=== PATIENT | female | born 2000 | race Two or more races ===

== ENCOUNTER 2022-07-24 08:27 | Inpatient (IN) ==
[2022-07-24] MEDS ORDERED: ONDANSETRON INJ 2 MG/ML 2 ML VIAL IV STA (08:53)
[2022-07-24] MEDS ORDERED: SODIUM CHLORIDE 0.9% 1000ML 1,000 ML IV ONE (08:53)
[2022-07-24 09:35] LABS: Appearance Urine Clear (Clear); Bacteria Urine Automated 2+ (Negative); Basophils % (auto) 0.5 %; Bilirubin Urine Negative (Negative); Blood Urine 1+ (Negative); Color Urine Yellow; Eosinophils # (auto) 0.09 K/uL (0-0.50); Eosinophils % (auto) 0.5 %; Epithelial Cell Urine Auto >30 /lpf (0-5); Glucose Urine UA Negative (Negative); Hematocrit (blood only) 45.3 % (37.0-47.0); Hemoglobin 15.3 g/dl (12.0-16.0); Immature Granulocytes # (auto) 0.08 K/uL (0.01-0.20); Immature Granulocytes % (auto) 0.4 %; Ketones Urine Negative (Negative); Leukocyte Esterase Urine Negative (Negative); Lymphocytes # (auto) 3.61 K/uL (1.2-3.4); Lymphocytes % (auto) 19.4 %; Mean Corpuscular Hemoglobin 28.8 pg (25.0-34.0); Mean Corpuscular Hgb Conc 33.8 g/dL (32.0-36.0); Mean Corpuscular Volume 85.2 fL (80.0-100.0); Mean Platelet Volume 10.3 fL (9.4-12.4); Monocytes # (auto) 1.27 K/uL (0.11-0.59); Monocytes % (auto) 6.8 %; Neutrophils # (auto) 13.48 K/uL (1.40-6.50); Neutrophils % (auto) 72.4 %; Nitrite Urine Negative (Negative); Platelet Count 506 K/uL (130-400); Protein Urine Negative (Negative); RBC Urine Automated 0-4 /hpf (0-4); RDW Coefficient of Variation 12.3 % (11.5-14.5); RDW Standard Deviation 37.9 fL (36.4-46.3); Red Blood Count 5.32 M/uL (4.20-5.40); Specific Gravity Urine 1.023 (1.000-1.030); Urobilinogen Urine Negative (Negative); White Blood Count 18.63 K/ul (4.8-10.8); pH Urine 5.5 (4.5-7.5)
[2022-07-24 09:48] LABS: Albumin Level 4.8 gm/dl (3.4-5.0); BUN Creatinine Ratio 9.9 (10-20); Bilirubin Direct 0.1 mg/dl (0-0.2); Bilirubin,Total 0.7 mg/dl (0.2-1.0); Calcium 9.4 mg/dl (8.6-10.3); Creatinine Clr Calc Pharmacy 133.8 ml/min; Est GFR (African American) 141.1 ml/min; Est GFR (Non-African American) 121.8 ml/min; Potassium 3.7 mmol/L (3.5-5.1); Total Protein 8.1 gm/dl (6.0-8.3)
[2022-07-24] MEDS ORDERED: OPTIRAY 350 100ml IV ONE (10:12)
--- NOTE | 2022-07-24 10:54 | CT Scan Report ---
CT SCAN OF THE ABDOMEN AND PELVIS WITH IV CONTRAST CLINICAL HISTORY: Right lower quadrant abdominal pain. COMPARISON STUDY: No priors. TECHNIQUE: Following the IV administration of 90 cc of Optiray 350, CT scan of the abdomen and pelvi s is performed from the lung bases to the proximal femora. Images are reviewed in the axial, sagittal , and coronal planes. IV contrast was administered without complication. A dose lowering technique wa s utilized adhering to the principles of ALARA. CT DOSE: 592.54 mGy.cm FINDINGS: Lung bases: The heart is normal in size and without pericardial effusion. The lung bases are clear. Liver: The contrast-enhanced liver is enlarged, measuring 18.7 cm in length. The liver demonstrates d iffusely demonstrate attenuation indicating steatosis. Fatty sparing is noted adjacent to the gallbla dder fossa. A 1.6 cm hyperdense lesion is seen in the right lobe on image #150. There is no intrahepa tic biliary ductal dilatation. The hepatic veins and portal veins are patent. Gallbladder: Unremarkable. Spleen: Normal in size and attenuation. Pancreas: Unremarkable. Adrenal glands: Unremarkable. Kidneys: The contrast enhanced kidneys are normal in size and without hydronephrosis. The kidneys enh ance symmetrically. Abdominal vasculature: The abdominal aorta is normal in course and caliber. Bowel: No bowel obstruction is seen. Residual enteric contrast is noted in the colon. The appendix is dilated and fluid-filled, measuring up to 2.1 cm in diameter as seen on axial image #306. The append iceal wall is thickened and hyperemic and there is surrounding inflammation and fluid. A calcified ap pendicolith is suggested at the base of the appendix on image #295. There is focal discontinuity of t he appendiceal wall posteriorly near the base. Developing perforation is not excluded. No organized f luid collection is seen to suggest abscess. Peritoneum: There is no intraperitoneal free air or abdominal ascites. Lymphadenopathy: None. Pelvic viscera: The bladder is normal as visualized. The uterus is normal in appearance noting an int rauterine device in place. There are bilateral ovarian follicles. A small volume of free fluid is see n in the cul-de-sac. Skeletal structures: No lytic or blastic lesions are seen. IMPRESSION: 1. Acute appendicitis. 2. Focal perforation at the base of the appendix is suspected. There is no organized fluid collection to suggest abscess. 3. Hepatomegaly and hepatic steatosis. 4. Free fluid in the cul-de-sac is nonspecific and could be reactive or physiologic. 5. There is a 1.6 cm hyperdense right lobe liver lesion. This likely represents a hemangioma or focal nodular hyperplasia but cannot be definitively characterized on this examination. If definitive deepak acterization is desired an MRI of the liver would be required. 6. Additional findings as above. ACT 112: Negative or not required by law. Electronically signed by: Sincere Gomez M.D. 07/24/2022 10:52 AM
[2022-07-24] MEDS ORDERED: PIPERACILLIN/TAZOBACTAM 4.5 GM/120 ML BAG IV ONE (10:58)
[2022-07-24] MEDS ORDERED: MoRPHine SULFATE 4 MG/ML 1 ML CARP\\VIAL IV STA (11:21)
--- NOTE | 2022-07-24 12:02 | History & Physical Report ---
Date of Service July 24, 2022 Assessment & Plan (1) Acute appendicitis with localized peritonitis: Plan: 22-year-old female with moderate to severe acute appendicitis with possible microperforation. Would recommend laparoscopic appendectomy. She will likely need to be admitted postoperatively and stay in the hospital till she is afebrile and her WBC normalizes. Plan for laparoscopic appendectomy, possible open The risk the procedure were discussed to include but not limited to bleeding, infection, conversion to open, normal appendix, need for future more extensive surgery, damage to surrounding structures, abscess, and the risk of anesthesia Admit to Med[facility] postop If evidence of perforation, would recommend IV antibiotics till WBC normalizes and afebrile History of Present Illness Chief Complaint: Abdominal pain Primary Care Provider: Gray Camacho 22-year-old female presents with abdominal pain. Started with periumbilical pain about 48 hours ago. Yesterday evening the pain migrated to the right lower quadrant and became worse. She admits to some nausea, and had some diarrhea early in the process. Otherwise no other fevers or abdominal symptoms. Otherwise healthy, no prior abdominal surgeries, no routine medications. Student at [employer]. Allergies Allergy/AdvReac Type Severity Reaction Status Date / Time No Known Allergies Allergy Unverified 07/24/22 09:39 Home Medications Medication Instructions Recorded Confirmed Type No Known Home Medications 07/24/22 07/24/22 History Past Med/Surg History Medical History (Updated 07/24/22 @ 12:01 by Aramis Corey DO, FACS) Acute appendicitis with localized peritonitis Social History Smoking Status: Never smoker Feels Safe at Home: Yes Review of Systems Review of Systems: All systems reviewed & are unremarkable except as noted in HPI & below Physical Exam Constitutional: WD/WN, vitals as above + obese Respiratory: normal respiratory effort, lungs clear to auscultation Cardiovascular: RRR, no murmur, no edema Gastrointestinal (Abdomen): Percussion/Palpation: + abdomen tender (Tender to palpation in right lower quadrant with localized guarding), + guarding and a bdomen soft; abdomen not rigid and no hernia Results & Data Results & Data Vital Signs (Past 12 Hours) Vital Signs Temp Pulse Resp BP Pulse Ox O2 Del Method 07/24/22 11:30 122/81 98 07/24/22 11:00 106/70 95 07/24/22 10:50 18 113/71 95 07/24/22 10:31 113/71 96 07/24/22 09:28 74 20 112/72 97 07/24/22 09:00 67 16 97 Room Air 07/24/22 09:35 78 07/24/22 08:38 36.6 C 94 H 20 112/78 97 Room Air Laboratory Results Laboratory Results - last 24 hr 07/24/22 07/24/22 07/24/22 09:05 09:05 09:05 WBC 18.63 H RBC 5.32 Hgb 15.3 Hct 45.3 MCV 85.2 MCH 28.8 MCHC 33.8 RDW Std Deviation 37.9 RDW Coeff of Marlene 12.3 Plt Count 506 H MPV 10.3 Immature Gran % (Auto) 0.4 Neut % (Auto) 72.4 Lymph % (Auto) 19.4 [place] % (Auto) 6.8 Eos % (Auto) 0.5 Baso % (Auto) 0.5 Neut # (Auto) 13.48 H Lymph # (Auto) 3.61 H [place] # (Auto) 1.27 H Eos # (Auto) 0.09 Baso # (Auto) 0.10 Immature Gran # (Auto) 0.08 Sodium 138 Potassium 3.7 Chloride 102 Carbon Dioxide 26 Anion Gap 10 BUN 7 Creatinine 0.71 Est Cr Clr Drug Dosing 133.8 Est GFR ( Amer) 141.1 Est GFR (Non-Af Amer) 121.8 BUN/Creatinine Ratio 9.9 L Glucose 103 H Calcium 9.4 Total Bilirubin 0.7 Direct Bilirubin 0.1 AST 38 ALT 111 H Alkaline Phosphatase 74 Total Protein 8.1 Albumin 4.8 Lipase 15 HCG, Quant < 1 Urine Color Urine Appearance Urine pH Ur Specific [place] Urine Protein Urine Glucose (UA) Urine Ketones Urine Blood Urine Nitrite Urine Bilirubin Urine Urobilinogen Ur Leukocyte Esterase Urine WBC (Auto) Urine RBC (Auto) U Hyaline Cast (Auto) U Epithel Cells (Auto) Urine Bacteria (Auto) POC Ur Test SARS-CoV-2, RNA, NAAT 07/24/22 07/24/22 07/24/22 09:05 09:05 Unknown WBC RBC Hgb Hct MCV MCH MCHC RDW Std Deviation RDW Coeff of [place] Plt Count MPV Immature Gran % (Auto) Neut % (Auto) Lymph % (Auto) [place] % (Auto) Eos % (Auto) Baso % (Auto) Neut # (Auto) Lymph # (Auto) [place] # (Auto) Eos # (Auto) Baso # (Auto) Immature Gran # (Auto) Sodium Potassium Chloride Carbon Dioxide Anion Gap BUN Creatinine Est Cr Clr Drug Dosing Est GFR ( Amer) Est GFR (Non-Af Amer) BUN/Creatinine Ratio Glucose Calcium Total Bilirubin Direct Bilirubin AST ALT Alkaline Phosphatase Total Protein Albumin Lipase HCG, Quant Urine Color Yellow Urine Appearance Clear Urine pH 5.5 Ur Specific [place] 1.023 Urine Protein Negative Urine Glucose (UA) Negative Urine Ketones Negative Urine Blood 1+ H Urine Nitrite Negative Urine Bilirubin Negative Urine Urobilinogen Negative Ur Leukocyte Esterase Negative Urine WBC (Auto) 1-5 Urine RBC (Auto) 0-4 U Hyaline Cast (Auto) 1-5 U Epithel Cells (Auto) >30 H Urine Bacteria (Auto) 2+ H POC Ur Test NEG SARS-CoV-2, RNA, NAAT Pending Diagnostic Findings I personally reviewed and interpreted the CT scan and agree with the assessment of an acute appendicitis with possible focal perforation, no evidence of well- developed abscess or free air. CT SCAN OF THE ABDOMEN AND PELVIS WITH IV CONTRAST CLINICAL HISTORY: Right lower quadrant abdominal pain. COMPARISON STUDY: No priors. TECHNIQUE: Following the IV administration of 90 cc of Optiray 350, CT scan of the abdomen and pelvis is performed from the lung bases to the proximal femora. Images are reviewed in the axial, sagittal, and coronal planes. IV contrast was administered without complication. A dose lowering technique was utilized adhering to the principles of ALARA. CT DOSE: 592.54 mGy.cm FINDINGS: Lung bases: The heart is normal in size and without pericardial effusion. The lung bases are clear. Liver: The contrast-enhanced liver is enlarged, measuring 18.7 cm in length. The liver demonstrates diffusely demonstrate attenuation indicating steatosis. Fatty sparing is noted adjacent to the gallbladder fossa. A 1.6 cm hyperdense lesion is seen in the right lobe on image #150. There is no intrahepatic biliary ductal dilatation. The hepatic veins and portal veins are patent. Gallbladder: Unremarkable. Spleen: Normal in size and attenuation. Pancreas: Unremarkable. Adrenal glands: Unremarkable. Kidneys: The contrast enhanced kidneys are normal in size and without hydronephrosis. The kidneys enhance symmetrically. Abdominal vasculature: The abdominal aorta is normal in course and caliber. Bowel: No bowel obstruction is seen. Residual enteric contrast is noted in the colon. The appendix is dilated and fluid-filled, measuring up to 2.1 cm in diameter as seen on axial image #306. The appendiceal wall is thickened and hyperemic and there is surrounding inflammation and fluid. A calcified appendicolith is suggested at the base of the appendix on image #295. There is focal discontinuity of the appendiceal wall posteriorly near the base. Developin g perforation is not excluded. No organized fluid collection is seen to suggest abscess. Peritoneum: There is no intraperitoneal free air or abdominal ascites. Lymphadenopathy: None. Pelvic viscera: The bladder is normal as visualized. The uterus is normal in appearance noting an intrauterine device in place. There are bilateral ovarian follicles. A small volume of free fluid is seen in the cul-de-sac. Skeletal structures: No lytic or blastic lesions are seen. IMPRESSION: 1. Acute appendicitis. 2. Focal perforation at the base of the appendix is suspected. There is no organized fluid collection to suggest abscess. 3. Hepatomegaly and hepatic steatosis. 4. Free fluid in the cul-de-sac is nonspecific and could be reactive or physiologic. 5. There is a 1.6 cm hyperdense right lobe liver lesion. This likely represents a hemangioma or focal nodular hyperplasia but cannot be definitively characterized on this examination. If definitive characterization is desired an MRI of the liver would be required. 6. Additional findings as above. PG Care Time/CCT Total # of Minutes Spent Total Time Spent with Patient: Total time spent is greater than 50% in coordination of care (as documented) at patient's floor/unit and/or counseling patient: Coding Level of Care Code 42368 INT INP/OBS CARE 40MIN Diagnoses Acute appendicitis with localized peritonitis K35.30
[2022-07-24] MEDS ORDERED: BUPIVACAINE 0.5 % 5 MG/1 ML MPF 30ML VIAL ONE (12:05)
[2022-07-24] MEDS ORDERED: LIDOCAINE 2% MPF LOCAL 5 ML VIAL ONE (12:16)
[2022-07-24] MEDS ORDERED: ONDANSETRON INJ 2 MG/ML 2 ML VIAL ONE (12:16)
[2022-07-24] MEDS ORDERED: DEXAMETHASONE SOD INJ 4 MG/ML VIAL ONE (12:16)
[2022-07-24] MEDS ORDERED: PROPOFOL IV EMULSION 10 MG/ML 20 ML VIAL IV ONE (12:16)
[2022-07-24] MEDS ORDERED: ROCURONIUM BROMIDE 10 MG/ML 5 ML VIAL IV ONE (12:16)
[2022-07-24] MEDS ORDERED: MIDAZOLAM HCL 1 MG/ML 2ML VIAL ONE (12:17)
[2022-07-24] MEDS ORDERED: fentaNYL citrate PF 100 MCG/2 ML VIAL ONE ×2 (12:17→13:00)
[2022-07-24] MEDS ORDERED: ATROPINE SULFATE 0.1 MG/ML 10ML SYR IV PRN (12:25)
[2022-07-24] MEDS ORDERED: fentaNYL citrate PF 100 MCG/2 ML VIAL IV PRN (12:25)
[2022-07-24] MEDS ORDERED: ONDANSETRON INJ 2 MG/ML 2 ML VIAL IV PRN ×2 (12:25→15:02)
[2022-07-24] MEDS ORDERED: ePHEDrine sulfate 50 MG/ML AMP IV PRN (12:25)
--- NOTE | 2022-07-24 12:26 | Anesthesiology Consultation ---
Date of Service July 24, 2022 Assessment & Plan Chart Review Chart Review: medical charge entry specialist initiated History Surgery Operation Date: 07/24/22 13:00 Proposed Procedures p Laparoscopic Appendectomy - Aramis Corey DO, FACS Height/Weight Height: 5 ft 4 in Weight: 87 kg Allergies Allergy/AdvReac Type Severity Reaction Status Date / Time No Known Allergies Allergy Unverified 07/24/22 09:39 Medications Home Medications Medication Instructions Recorded Confirmed Last Taken No Known Home Medications 07/24/22 07/24/22 Unknown Past Medical History Medical History Acute appendicitis with localized peritonitis Social History Smoking Status: Never smoker Physical Exam Vital Signs Last Vital Signs Temp 97.9 F 07/24/22 08:38 Pulse 70 07/24/22 12:20 Resp 18 07/24/22 12:20 BP 113/71 07/24/22 12:20 Pulse Ox 96 07/24/22 12:20 O2 Del Method Room Air 07/24/22 12:20 Testing Laboratory Results 07/24/22 09:05 07/24/22 09:05 HCG, Quant < 1 mIU/ml 07/24/22 09:05 Urine Color Yellow 07/24/22 09:05 Urine Appearance Clear (Clear) 07/24/22 09:05 Urine pH 5.5 (4.5-7.5) 07/24/22 09:05 Ur Specific [place] 1.023 (1.000-1.030) 07/24/22 09:05 Urine Protein Negative (Negative) 07/24/22 09:05 Urine Glucose (UA) Negative (Negative) 07/24/22 09:05 Urine Ketones Negative (Negative) 07/24/22 09:05 Urine Nitrite Negative (Negative) 07/24/22 09:05 Ur Leukocyte Esterase Negative (Negative) 07/24/22 09:05 Urine WBC (Auto) 1-5 /hpf (0-5) 07/24/22 09:05 Urine RBC (Auto) 0-4 /hpf (0-4) 07/24/22 09:05 U Hyaline Cast (Auto) 1-5 /lpf (0-5) 07/24/22 09:05 U Epithel Cells (Auto) >30 /lpf (0-5) H 07/24/22 09:05 Urine Bacteria (Auto) 2+ (Negative) H 07/24/22 09:05 07/24/22 07/24/22 09:05 09:05 HCG, Quant < 1 POC Ur Test NEG
[2022-07-24] MEDS ORDERED: SUGAMMADEX SODIUM 200 MG/2 ML VIAL IV ONE (13:24)
[2022-07-24] MEDS ORDERED: KETOROLAC 30 MG/ML VIAL ONE (13:25)
--- NOTE | 2022-07-24 13:44 | Operative Report ---
PG Post Operative Report Pre & Post Diagnosis Operation Date: 07/24/22 13:00 Pre-Op Diagnosis: Lower abdominal pain; Acute appendicitis with localized peritonitis Post-Op Diagnosis: Acute appendicitis with localized peritonitis, perforated I identified the patient and participated in the time-out.: Yes Procedure Operation Date: 07/24/22 13:00 Actual Procedures p Laparoscopic Appendectomy(Not Applicable) - Aramis Corey DO, AGUSTIN Surgeon Aramis Corey DO, AGUSTIN Dyeing Machine Back Tender None Estimated Blood Loss 5 Findings Consistent with Post-Op Diagnosis Acute appendicitis with contained perforation and necrotic base. Partial cectomy performed. Good hemostasis, MARY placed. Specimens Appendix Drains 10 mm MARY in right lower quadrant Anesthesia Type General Complications none Disposition Accompanied Patient To Recovery: No Disposition: Recovery Room Indications 22-year-old female presented with abdominal pain, physical exam and history consistent with appendicitis. CT shows acute appendicitis with perforation at the base, no free air, abscess, or phlegmon. Plan for laparoscopic appendectomy, possible open. The risks of the procedure were discussed, all questions were answered, and the patient agreed to proceed with surgery as planned. Description of Procedure The patient was properly identified, consented, and taken to the operating room where she was placed in the supine position. General endotracheal anesthesia was induced. SCDs and a safety belt were placed. Preoperative antibiotics were administered. A Peterson catheter was placed. The patient's abdomen was prepped and draped in the standard sterile fashion. Surgical timeout was performed and all parties were in agreement that this was the correct patient and procedure to be performed and we continued as planned. A curvilinear infraumbilical incision was made with electrocautery and deepened down to the fascia with blunt dissection. The base of the umbilicus was grasped with a Jane and elevated towards the ceiling. An incision was made in the midline fascia with a knife and entry into the peritoneum was confirmed. Stay suture of 0 Vicryl was placed and a Phillip trocar was inserted. The abdomen was insufflated with carbon dioxide which the patient tolerated without incident. The laparoscope was inserted and no damage from initial trocar placement was noted, no gross abnormalities were noted within the 4 quadrants the abdomen. 5 mm ports were then placed in the left lower quadrant with care not to damage the epigastric vessels, and in the suprapubic midline with care not to damage the bladder. The patient was placed in Trendelenburg position and rotated towards the left. The small bowel was swept away from the right lower quadrant. The cecum was grasped with an atraumatic grasper exposing the appendix. The appendix was moderately to severely inflamed. On the lateral portion of the base of the appendix there was a gangrenous patch with a contained perforation. There did not appear any spillage of pus or stool. There was turbid fluid in the pelvis. A window was created between the base of the appendix and the mesoappendix. A dao loaded endoscopic stapler was then used to divide the appendix at its base. A portion of the cecum was stapled along with this to allow for healthy base away from the perforation. The Sonicision was then used to divide the mesoappendix. Hemostasis was good. The appendix was placed in an Endo Catch bag and removed through the umbilical port site. The right lower quadrant and pelvis was irrigated and hemostasis was found to be good. A 10 mm MARY drain was placed into the right lower quadrant and exited through the left lower quadrant incision. This was secured in place with a 2-0 nylon suture. 5 mm trochars were removed under direct visualization and the abdomen was allowed to collapse. The umbilical port site fascia was closed with 0 Vicryl suture. The wound was irrigated, and the skin of all ports was closed with 4-0 Monocryl subcuticular sutures. Dermabond was placed over the wounds. The patient was extubated in the operating room and taken to the PACU where she recovered without apparent incident. The Peterson catheter was removed in the operating room. All sponge, instrument and needle counts were correct at the conclusion of the procedure. The patient tolerated the procedure well. I attest to the content of the Intraoperative Record and any orders documented therein. Any exceptions are noted below.
[2022-07-24] MEDS ORDERED: ACETAMINOPHEN 1,000 MG/100 ML VIAL IV STA (14:34)
[2022-07-24] MEDS ORDERED: ACETAMINOPHEN 1000 MG/100 ML IV IV ONE (14:36)
[2022-07-24] MEDS ORDERED: MoRPHine SULFATE 4 MG/ML 1 ML CARP\\VIAL IV PRN (15:02)
[2022-07-24] MEDS ORDERED: oxyCODONE HCL IR 5 MG TAB (IMMEDIATE RELEASE) PO PRN (15:02)
[2022-07-24] MEDS ORDERED: MoRPHine SULFATE 2 MG/ML CARP IV PRN (15:02)
--- NOTE | 2022-07-24 15:17 | Anesthesiology Progress Note ---
Date of Service July 24, 2022 Anesthesia Post Procedure Vital Signs Vital Signs: Temp Pulse Pulse Pulse Resp BP BP 07/24/22 15:02 100.2 F H 114 H 16 104/68 07/24/22 14:50 100.8 F H 104 H 20 111/67 07/24/22 14:40 111 H 21 102/59 L 07/24/22 14:30 100.8 F H 116 H 22 109/63 07/24/22 14:20 108 H 22 114/60 07/24/22 14:10 110 H 22 115/60 07/24/22 14:00 107 H 24 112/68 07/24/22 13:50 97.0 F L 121 H 20 114/68 07/24/22 12:00 121/76 07/24/22 12:20 70 18 113/71 07/24/22 11:30 122/81 07/24/22 11:00 106/70 07/24/22 10:50 18 113/71 07/24/22 10:31 113/71 07/24/22 09:28 74 20 112/72 07/24/22 09:00 67 16 07/24/22 09:35 78 07/24/22 08:38 97.9 F 94 H 20 112/78 Pulse Ox O2 Del Method O2 Flow Rate 07/24/22 15:02 97 Nasal Cannula 2 07/24/22 14:50 98 Nasal Cannula 2 07/24/22 14:40 95 Nasal Cannula 2 07/24/22 14:30 91 Room Air 07/24/22 14:20 99 Oxymask 3 07/24/22 14:10 100 Oxymask 3 07/24/22 14:00 100 Oxymask 4 07/24/22 13:50 94 Oxymask 6 07/24/22 12:00 96 07/24/22 12:20 96 Room Air 07/24/22 11:30 98 07/24/22 11:00 95 07/24/22 10:50 95 07/24/22 10:31 96 07/24/22 09:28 97 07/24/22 09:00 97 Room Air 07/24/22 09:35 07/24/22 08:38 97 Room Air Pain Intensity Right Lower Abdomen: Pain Intensity: 8 Transfer of Care Handoff Completed per policy Notes Mental Status: alert / awake / arousable and participated in evaluation Patient Amnestic to Procedure: Yes Nausea / Vomiting: adequately controlled Pain: adequately controlled Airway Patency, RR, SpO2: stable & adequate BP & HR: stable & adequate Hydration State: stable & adequate Anesthetic Complications: no major complications apparent and Pt Satisfied with anesthetic care
[2022-07-24] MEDS: LACTATED RINGER'S 1,000 ML IV SCH (15:40)
--- NOTE | 2022-07-24 16:08 | Emergency Department Note ---
History of Present Illness General Chief Complaint: Abdominal Pain Stated Complaint: LOWER ABD PAIN Time Seen by Provider: 07/24/22 08:44 History of Present Illness Provider Complaint: abdominal pain Onset (ago): 2 day(s) Pain Consistency: constant Location: RLQ Severity: moderate Maximum Pain Intensity: 8 Current Pain Intensity: 9 Quality: + stabbing and + sharp Relieved By: + nothing Exacerbated By: + nothing Context: no foreign travel, no possible food poisoning, no sick contacts, no recent antibiotic use, no recent surgery/procedure, no recent injury or no history of similar episodes Associated Symptoms: + nausea; no vomiting, no diarrhea, no fever, no chills, no constipation, no hematemesis, no hematochezia, no melena and no back pain Patient is currently on her menstrual cycle Related Data Patient Confirmed : Yes Home Medications Medication Instructions Recorded Confirmed Type No Known Home Medications 07/24/22 07/24/22 History Allergies Allergy/AdvReac Type Severity Reaction Status Date / Time No Known Allergies Allergy Unverified 07/24/22 09:39 Past Med/Surg History Medical History No pertinent family history No pertinent past medical history Surgical History No pertinent past surgical history Social History Smoking Status: Never smoker Feels Safe at Home: Yes Physical Exam Vital Signs: Vital Signs - 24 hr 07/24/22 08:38 07/24/22 09:35 07/24/22 09:00 Temperature 36.6 C Temperature Source Temporal Artery Sc an Pulse Rate 94 H 78 67 Pulse Rate [Apical ] Pulse Rate from Sp O2 Sensor Pulse Rhythm [Apic al] Pulse Strength [Ap ical] Respiratory Rate 20 16 Respiratory Effort / Characteristics Non-Labored Respiratory Depth Normal Respiratory Patter n Blood Pressure 112/78 Blood Pressure [Le ft Arm] Blood Pressure Venessa n 89 Blood Pressure Venessa n [Left Arm] Blood Pressure Pos ition [Left Arm] Pulse Oximetry 97 97 Oxygen Delivery Me thod Room Air Room Air Oxygen Flow Rate Sepsis Recent Feve r Within 48 Hours No Sepsis New/Unexpla ined Change in Men trupti Status N/A Sepsis Action Take n by Nursing No Action Required 07/24/22 09:28 07/24/22 10:31 07/24/22 10:50 Temperature Temperature Source Pulse Rate 74 Pulse Rate [Apical ] Pulse Rate from Sp O2 Sensor 73 76 68 Pulse Rhythm [Apic al] Pulse Strength [Ap ical] Respiratory Rate 20 18 Respiratory Effort / Characteristics Respiratory Depth Respiratory Patter n Blood Pressure 112/72 113/71 113/71 Blood Pressure [Le ft Arm] Blood Pressure Venessa n 85 85 85 Blood Pressure Venessa n [Left Arm] Blood Pressure Pos ition [Left Arm] Pulse Oximetry 97 96 95 Oxygen Delivery Me thod Oxygen Flow Rate Sepsis Recent Feve r Within 48 Hours Sepsis New/Unexpla ined Change in Men trupti Status Sepsis Action Take n by Nursing 07/24/22 11:00 07/24/22 11:30 07/24/22 12:20 Temperature Temperature Source Pulse Rate 70 Pulse Rate [Apical ] Pulse Rate from Sp O2 Sensor 71 65 Pulse Rhythm [Apic al] Pulse Strength [Ap ical] Respiratory Rate 18 Respiratory Effort / Characteristics Respiratory Depth Respiratory Patter n Blood Pressure 106/70 122/81 113/71 Blood Pressure [Le ft Arm] Blood Pressure Venessa n 82 94 Blood Pressure Venessa n [Left Arm] Blood Pressure Pos ition [Left Arm] Pulse Oximetry 95 98 96 Oxygen Delivery Me thod Room Air Oxygen Flow Rate Sepsis Recent Feve r Within 48 Hours Sepsis New/Unexpla ined Change in Men trupti Status Sepsis Action Take n by Nursing 07/24/22 12:00 07/24/22 13:50 Temperature 36.1 C L Temperature Source Temporal Artery Sc an Pulse Rate Pulse Rate [Apical ] 121 H Pulse Rate from Sp O2 Sensor 74 Pulse Rhythm [Apic al] Regular Pulse Strength [Ap ical] Normal Respiratory Rate 20 Respiratory Effort / Characteristics Non-Labored Sponta neous Respiratory Depth Normal Respiratory Patter n Regular Blood Pressure 121/76 Blood Pressure [Le ft Arm] 114/68 Blood Pressure Venessa n 91 Blood Pressure Venessa n [Left Arm] 83 Blood Pressure Pos ition [Left Arm] Lying Pulse Oximetry 96 94 Oxygen Delivery Me thod Oxymask Oxygen Flow Rate 6 Sepsis Recent Feve r Within 48 Hours Sepsis New/Unexpla ined Change in Men trupti Status Sepsis Action Take n by Nursing Physical Exam: Physical Exam GENERAL: She is oriented to person, place, and time. She appears well-developed and well-nourished. She does not appear distressed. HENT: Exam performed. -Head: Normocephalic and atraumatic. -Right Ear: External ear normal. No mastoid erythema -Left Ear: External ear normal. No mastoid erythema EYES: Conjunctivae and EOM are normal. Pupils are equal, round, and reactive to light. Right eye exhibits no discharge. Left eye exhibits no discharge. No scleral icterus. CV: Normal rate, regular rhythm, normal heart sounds and intact distal pulses. There is no peripheral edema. Palpable radial pulses bue. PULM/CHEST: Effort normal and breath sounds normal. No respiratory distress. No stridor. She has no wheezes. She has no rales. -Chest Wall: She exhibits no tenderness. ABD: The abdomen is soft. Bowel sounds are normal. She has no distension. No mass is present. There is tenderness to palpation of the right lower quadrant. There is no rebound, no guarding, no Tang's sign. Rovsig negative MUSC/SKEL: Normal range of motion. There is no peripheral edema, tenderness or deformity. LYMPH: No cervical adenopathy. NEURO: She is alert and oriented to person, place, and time. She has normal strength. No cranial nerve deficit or sensory deficit. Coordination and gait normal. GCS eye subscore is 4. GCS verbal subscore is 5. GCS motor subscore is 6. Cerebellar tests wnl. SKIN: Skin is warm and dry. She is not diaphoretic. PSYCH: She has a normal mood and affect. Behavior is normal. Judgment and thought content normal. Course Course 0844: The patient was evaluated in room B2. A complete history and physical exam was performed Cardiac monitoring: An order was placed for continuous cardiac monitoring. The monitor shows a rate of 90 with sinus rhythm interpreted by me 1120: Vital signs stable. Labs show leukocytosis of 18. CT shows acute appendicitis with possible perforation no abscess. Zosyn ordered for the patient. Discussed the case with general surgery Dr. Corey who will evaluate the patient. Administered Medications Lactated Ringer's (Lr) 1,000 mls @ 125 mls/hr IV .Q8H [facility] Stop: 08/23/22 15:01 Last Admin: 07/24/22 15:40 Dose: 125 mls/hr Documented By: AV Discontinued Medications Acetaminophen (Acetaminophen 1000 Mg/100 Ml Iv) Confirm Administered Dose 1,000 mg IV .STK-MED ONE Stop: 07/24/22 14:37 Last Admin: 07/24/22 14:37 Dose: Not Given Documented By: WT Bupivacaine HCl (Bupivacaine 0.5 % 5 Mg/1 Ml Mpf 30ml Vial) Confirm Administered Dose 30 ml .ROUTE .STK-MED ONE Stop: 07/24/22 12:06 Last Admin: 07/24/22 13:32 Dose: 30 ml Documented By: DMCasey Sodium Chloride (Nss 1000ml) 1,000 mls @ 999 mls/hr IV .Q1H1M ONE Stop: 07/24/22 09:53 Last Infusion: 07/24/22 10:30 Dose: 0 mls/hr Documented By: Admin: 07/24/22 09:18 Dose: 999 mls/hr Documented By: NRSarah Piperacillin Sod/Tazobactam Sod (Zosyn) 4.5 gm in 120 mls @ 240 mls/hr IV NOW ONE Stop: 07/24/22 11:27 Last Infusion: 07/24/22 11:46 Dose: 0 mls/hr Documented By: Admin: 07/24/22 11:13 Dose: 240 mls/hr Documented By: SHARON Acetaminophen (Ofirmev) 1,000 mg in 100 mls @ 400 mls/hr IV NOW STA Stop: 07/24/22 14:48 Last Infusion: 07/24/22 14:54 Dose: 0 mls/hr Documented By: Admin: 07/24/22 14:37 Dose: 400 mls/hr Documented By: WT Ioversol (Optiray 350 100ml) 90 ml IV ONCE ONE Stop: 07/24/22 10:13 Last Admin: 07/24/22 10:13 Dose: 90 ml Documented By: ROSALIND Morphine Sulfate (Morphine Sulfate 4 Mg/Ml 1 Ml Carp\Vial) 4 mg IV NOW STA Stop: 07/24/22 11:22 Last Admin: 07/24/22 11:36 Dose: 4 mg Documented By: KEHINDE Ondansetron HCl (Ondansetron Inj 2 Mg/Ml 2 Ml Vial) 4 mg IV NOW STA Stop: 07/24/22 08:54 Last Admin: 07/24/22 09:18 Dose: 4 mg Documented By: KEHINDE Medical Decision Making Laboratory Data Attestation: I reviewed the patient's lab results. 07/24/22 09:05 07/24/22 09:05 Lab Results 07/24/22 07/24/22 07/24/22 Range/Units 09:05 09:05 09:05 WBC 18.63 H (4.8-10.8) K/ul RBC 5.32 (4.20-5.40) M/uL Hgb 15.3 (12.0-16.0) g/dl Hct 45.3 (37.0-47.0) % MCV 85.2 (80.0-100.0) fL MCH 28.8 (25.0-34.0) pg MCHC 33.8 (32.0-36.0) g/dL RDW Std Deviation 37.9 (36.4-46.3) fL RDW Coeff of Marlene 12.3 (11.5-14.5) % Plt Count 506 H (130-400) K/uL MPV 10.3 (9.4-12.4) fL Immature Gran % (Auto) 0.4 % Neut % (Auto) 72.4 % Lymph % (Auto) 19.4 % [place] % (Auto) 6.8 % Eos % (Auto) 0.5 % Baso % (Auto) 0.5 % Neut # (Auto) 13.48 H (1.40-6.50) K/uL Lymph # (Auto) 3.61 H (1.2-3.4) K/uL [place] # (Auto) 1.27 H (0.11-0.59) K/uL Eos # (Auto) 0.09 (0-0.50) K/uL Baso # (Auto) 0.10 (0-0.2) K/uL Immature Gran # (Auto) 0.08 (0.01-0.20) K/uL Sodium 138 (136-145) mmol/L Potassium 3.7 (3.5-5.1) mmol/L Chloride 102 (98-107) mmol/L Carbon Dioxide 26 (21-32) mmol/L Anion Gap 10 (3-11) BUN 7 (6-23) mg/dl Creatinine 0.71 (0.6-1.2) mg/dl Est Cr Clr Drug Dosing 133.8 ml/min Est GFR ( Amer) 141.1 ml/min Est GFR (Non-Af Amer) 121.8 ml/min BUN/Creatinine Ratio 9.9 L (10-20) Glucose 103 H (70-99(Fasting)) mg/dl Calcium 9.4 (8.6-10.3) mg/dl Total Bilirubin 0.7 (0.2-1.0) mg/dl Direct Bilirubin 0.1 (0-0.2) mg/dl AST 38 (13-39) U/L ALT 111 H (7-52) U/L Alkaline Phosphatase 74 (34-104) U/L Total Protein 8.1 (6.0-8.3) gm/dl Albumin 4.8 (3.4-5.0) gm/dl Lipase 15 (11-82) U/L HCG, Quant < 1 mIU/ml Urine Color Urine Appearance (Clear) Urine pH (4.5-7.5) Ur Specific [place] (1.000-1.030) Urine Protein (Negative) Urine Glucose (UA) (Negative) Urine Ketones (Negative) Urine Blood (Negative) Urine Nitrite (Negative) Urine Bilirubin (Negative) Urine Urobilinogen (Negative) Ur Leukocyte Esterase (Negative) Urine WBC (Auto) (0-5) /hpf Urine RBC (Auto) (0-4) /hpf U Hyaline Cast (Auto) (0-5) /lpf U Epithel Cells (Auto) (0-5) /lpf Urine Bacteria (Auto) (Negative) POC Ur Test (NEG) 07/24/22 07/24/22 Range/Units 09:05 09:05 WBC (4.8-10.8) K/ul RBC (4.20-5.40) M/uL Hgb (12.0-16.0) g/dl Hct (37.0-47.0) % MCV (80.0-100.0) fL MCH (25.0-34.0) pg MCHC (32.0-36.0) g/dL RDW Std Deviation (36.4-46.3) fL RDW Coeff of Marlene (11.5-14.5) % Plt Count (130-400) K/uL MPV (9.4-12.4) fL Immature Gran % (Auto) % Neut % (Auto) % Lymph % (Auto) % [place] % (Auto) % Eos % (Auto) % Baso % (Auto) % Neut # (Auto) (1.40-6.50) K/uL Lymph # (Auto) (1.2-3.4) K/uL [place] # (Auto) (0.11-0.59) K/uL Eos # (Auto) (0-0.50) K/uL Baso # (Auto) (0-0.2) K/uL Immature Gran # (Auto) (0.01-0.20) K/uL Sodium (136-145) mmol/L Potassium (3.5-5.1) mmol/L Chloride (98-107) mmol/L Carbon Dioxide (21-32) mmol/L Anion Gap (3-11) BUN (6-23) mg/dl Creatinine (0.6-1.2) mg/dl Est Cr Clr Drug Dosing ml/min Est GFR ( Amer) ml/min Est GFR (Non-Af Amer) ml/min BUN/Creatinine Ratio (10-20) Glucose (70-99(Fasting)) mg/dl Calcium (8.6-10.3) mg/dl Total Bilirubin (0.2-1.0) mg/dl Direct Bilirubin (0-0.2) mg/dl AST (13-39) U/L ALT (7-52) U/L Alkaline Phosphatase (34-104) U/L Total Protein (6.0-8.3) gm/dl Albumin (3.4-5.0) gm/dl Lipase (11-82) U/L HCG, Quant mIU/ml Urine Color Yellow Urine Appearance Clear (Clear) Urine pH 5.5 (4.5-7.5) Ur Specific [place] 1.023 (1.000-1.030) Urine Protein Negative (Negative) Urine Glucose (UA) Negative (Negative) Urine Ketones Negative (Negative) Urine Blood 1+ H (Negative) Urine Nitrite Negative (Negative) Urine Bilirubin Negative (Negative) Urine Urobilinogen Negative (Negative) Ur Leukocyte Esterase Negative (Negative) Urine WBC (Auto) 1-5 (0-5) /hpf Urine RBC (Auto) 0-4 (0-4) /hpf U Hyaline Cast (Auto) 1-5 (0-5) /lpf U Epithel Cells (Auto) >30 H (0-5) /lpf Urine Bacteria (Auto) 2+ H (Negative) POC Ur Test NEG (NEG) Imaging Data Radiologist's Impression: Abdomen/Pelvis CT 07/24/22 08:53 CT SCAN OF THE ABDOMEN AND PELVIS WITH IV CONTRAST CLINICAL HISTORY: Right lower quadrant abdominal pain. COMPARISON STUDY: No priors. TECHNIQUE: Following the IV administration of 90 cc of Optiray 350, CT scan of the abdomen and pelvis is performed from the lung bases to the proximal femora. Images are reviewed in the axial, sagittal, and coronal planes. IV contrast was administered without complication. A dose lowering technique was utilized adhering to the principles of ALARA. CT DOSE: 592.54 mGy.cm FINDINGS: Lung bases: The heart is normal in size and without pericardial effusion. The lung bases are clear. Liver: The contrast-enhanced liver is enlarged, measuring 18.7 cm in length. The liver demonstrates diffusely demonstrate attenuation indicating steatosis. Fatty sparing is noted adjacent to the gallbladder fossa. A 1.6 cm hyperdense lesion is seen in the right lobe on image #150. There is no intrahepatic biliary ductal dilatation. The hepatic veins and portal veins are patent. Gallbladder: Unremarkable. Spleen: Normal in size and attenuation. Pancreas: Unremarkable. Adrenal glands: Unremarkable. Kidneys: The contrast enhanced kidneys are normal in size and without hydronephrosis. The kidneys enhance symmetrically. Abdominal vasculature: The abdominal aorta is normal in course and caliber. Bowel: No bowel obstruction is seen. Residual enteric contrast is noted in the colon. The appendix is dilated and fluid-filled, measuring up to 2.1 cm in diameter as seen on axial image #306. The appendiceal wall is thickened and hyperemic and there is surrounding inflammation and fluid. A calcified appendicolith is suggested at the base of the appendix on image #295. There is focal discontinuity of the appendiceal wall posteriorly near the base. Developing perforation is not excluded. No organized fluid collection is seen to suggest abscess. Peritoneum: There is no intraperitoneal free air or abdominal ascites. Lymphadenopathy: None. Pelvic viscera: The bladder is normal as visualized. The uterus is normal in appearance noting an intrauterine device in place. There are bilateral ovarian follicles. A small volume of free fluid is seen in the cul-de-sac. Skeletal structures: No lytic or blastic lesions are seen. IMPRESSION: 1. Acute appendicitis. 2. Focal perforation at the base of the appendix is suspected. There is no organized fluid collection to suggest abscess. 3. Hepatomegaly and hepatic steatosis. 4. Free fluid in the cul-de-sac is nonspecific and could be reactive or physiologic. 5. There is a 1.6 cm hyperdense right lobe liver lesion. This likely represents a hemangioma or focal nodular hyperplasia but cannot be definitively characterized on this examination. If definitive characterization is desired an MRI of the liver would be required. 6. Additional findings as above. ACT 112: Negative or not required by law. Electronically signed by: Sincere Gomez M.D. 07/24/2022 10:52 AM [facility] Narrative 0844: The patient was evaluated in room B2. A complete history and physical exam was performed Cardiac monitoring: An order was placed for continuous cardiac monitoring. The monitor shows a rate of 90 with sinus rhythm interpreted by me 1120: Vital signs stable. Labs show leukocytosis of 18. CT shows acute appendicitis with possible perforation no abscess. Zosyn ordered for the patient. Discussed the case with general surgery Dr. Corey who will evaluate the patient. Impression & Plan Acute appendicitis with localized peritonitis Discharge Plan Visit Data Chief Complaint: Abdominal Pain Stated Complaint: LOWER ABD PAIN ED Provider: Sebastian Schwartz Discharge Problem: Acute appendicitis with localized peritonitis Patient Disposition: Admitted As Inpatient Discharge Instructions Interventions: ED Discharge Assessment Last Done: 07/24/22 12:20
[2022-07-24] MEDS: AMPICILLIN/SULBACTAM SOD 3,000 MG in 0.9 % SODIUM CHLORIDE 100 ML IV SCH ×2 (16:18→21:00)
[2022-07-24] MEDS: KETOROLAC TROMETHAMINE 15 MG/ML VIAL IV SCH (18:04)
[2022-07-24] MEDS: oxyCODONE HCL IR 5 MG TAB (IMMEDIATE RELEASE) PO PRN (19:09)
[2022-07-24] MEDS: ACETAMINOPHEN 1,000 MG/100 ML VIAL IV SCH (21:00)
[2022-07-25] MEDS: LACTATED RINGER'S 1,000 ML IV SCH ×3 (00:47→22:18)
[2022-07-25] MEDS: KETOROLAC TROMETHAMINE 15 MG/ML VIAL IV SCH ×5 (00:47→23:13)
[2022-07-25] MEDS: AMPICILLIN/SULBACTAM SOD 3,000 MG in 0.9 % SODIUM CHLORIDE 100 ML IV SCH ×4 (03:57→22:32)
[2022-07-25] MEDS: oxyCODONE HCL IR 5 MG TAB (IMMEDIATE RELEASE) PO PRN ×4 (04:00→19:53)
--- NOTE | 2022-07-25 05:04 | Surgery Progress Note ---
Date of Service July 25, 2022 Assessment & Plan (1) Acute appendicitis with localized peritonitis: Plan Status post laparoscopic appendectomy on 07/24/2022 (postop day #1) Continue analgesics Continue antiemetics Maintain on clear liquids with consideration to advancing further once bowel function improves Continue antibiotics in the form of Unasyn Continue IV fluids until oral intake is adequate If a.m. labs stable consider adding DVT prophylaxis Check a.m. labs when available Mobilize as able Admission and Anticipated Discharge Date Admission Date: July 24, 2022 Supervising Physician Co-Signing Physician Notes Patient seen examined, labs reviewed, agree with above. POD #1 laparoscopic appendectomy for perforated appendicitis. Abdomen sore, but feels better than it did prior to surgery. Did fever initially postop which is expected. Tolerating clears. On exam afebrile stable vitals. Incisions without infection. MARY somewhat cloudy. WBC 23. Continue IV antibiotics until afebrile for 24 hours and with a near normal white count. Will advance diet as tolerated. Subjective Patient is resting comfortably in bed. Since her surgery she denies any nausea or vomiting. She denies any bowel movement or flatus since surgery. Thus far since surgery she has tolerated some clear liquids with an occasional cracker. She denies any worsening abdominal pain with this oral intake. Physical Exam Gastrointestinal (Abdomen): Abdomen is soft and nondistended. Incisions are clean, dry, intact. MARY drain is in place with serosanguineous fluid. Results & Data Vital Signs (Past 12 Hours) Vital Signs Temp Pulse Resp BP Pulse Ox O2 Del Method 07/25/22 03:13 36.8 C 82 16 100/63 94 Room Air 07/24/22 22:33 36.9 C 87 16 100/63 94 Room Air 07/24/22 19:11 37.1 C 109 H 16 109/71 95 Room Air 07/24/22 18:00 37.2 C 105 H 16 105/73 95 Room Air PG Care Time/CCT Total # of Minutes Spent Total Time Spent with Patient: Total time spent is greater than 50% in coordination of care (as documented) at patient's floor/unit and/or counseling patient: Coding Level of Care Code 21068 Post Operative Follow-Up Diagnoses Acute appendicitis with localized peritonitis K35.30
[2022-07-25] MEDS: ACETAMINOPHEN 1,000 MG/100 ML VIAL IV SCH ×3 (05:30→22:08)
[2022-07-25 06:11] LABS: Hematocrit (blood only) 40.4 % (37.0-47.0); Hemoglobin 13.6 g/dl (12.0-16.0); Mean Corpuscular Hemoglobin 29.1 pg (25.0-34.0); Mean Corpuscular Hgb Conc 33.7 g/dL (32.0-36.0); Mean Corpuscular Volume 86.5 fL (80.0-100.0); Mean Platelet Volume 10.4 fL (9.4-12.4); Platelet Count 439 K/uL (130-400); RDW Coefficient of Variation 12.6 % (11.5-14.5); RDW Standard Deviation 39.8 fL (36.4-46.3); Red Blood Count 4.67 M/uL (4.20-5.40); White Blood Count 23.54 K/ul (4.8-10.8)
[2022-07-25 06:40] LABS: Albumin Globulin Ratio 1.3 (0.9-2); Albumin Level 3.8 gm/dl (3.4-5.0); BUN Creatinine Ratio 11.3 (10-20); Bilirubin,Total 1.2 mg/dl (0.2-1.0); Calcium 8.7 mg/dl (8.6-10.3); Creatinine Clr Calc Pharmacy 153.2 ml/min; Est GFR (African American) 149.4 ml/min; Est GFR (Non-African American) 128.9 ml/min; Globulin 2.9 gm/dl (2.5-4.0); Total Protein 6.7 gm/dl (6.0-8.3)
[2022-07-25 06:58] LABS: Basophils # (auto) 0.04 K/uL (0-0.2); Basophils % (auto) 0.2 %; Immature Granulocytes # (auto) 0.14 K/uL (0.01-0.20); Immature Granulocytes % (auto) 0.6 %; Lymphocytes # (auto) 1.72 K/uL (1.2-3.4); Lymphocytes % (auto) 7.3 %; Monocytes # (auto) 1.44 K/uL (0.11-0.59); Monocytes % (auto) 6.1 %; Neutrophils % (auto) 85.8 %
[2022-07-26] MEDS: oxyCODONE HCL IR 5 MG TAB (IMMEDIATE RELEASE) PO PRN ×2 (03:39→15:31)
[2022-07-26] MEDS: AMPICILLIN/SULBACTAM SOD 3,000 MG in 0.9 % SODIUM CHLORIDE 100 ML IV SCH (05:10)
[2022-07-26] MEDS: ACETAMINOPHEN 1,000 MG/100 ML VIAL IV SCH ×3 (05:54→21:54)
[2022-07-26] MEDS: KETOROLAC TROMETHAMINE 15 MG/ML VIAL IV SCH ×3 (05:54→18:07)
--- NOTE | 2022-07-26 08:35 | Surgery Progress Note ---
Date of Service July 26, 2022 Assessment & Plan (1) Acute appendicitis with localized peritonitis: Plan: POD#2 laparoscopic appendectomy for perforated appendicitis WBC 16(23). Patient sinus tachy (100s). BP stable. Low grade temp of 37.9C at 6:30AM On 2L O2 for some mild SOB this AM. appears comfortable and in no distress..encouraging IS/pulm toilet. denies chest pain Some mild nausea overnight, will continue fulls for now until symptoms improved. Consider diet adv later Will switch IV unasyn to IV zosyn and continue to monitor vitals. WBC downtrending Incisions c/d/i. MARY drain serosang. Encourage OOB Admission and Anticipated Discharge Date Admission Date: July 24, 2022 Supervising Physician Co-Signing Physician Notes Patient seen examined, labs reviewed, agree with above. POD #2 laparoscopic appendectomy for perforated appendicitis. Abdomen sore, but feels better than it did prior to surgery. Did have a fever overnight. Tolerating full liquids, but some nausea if she takes it too fast. She is passing flatus. On exam afebrile stable vitals. Incisions without infection. MARY serosanguineous. WBC 16, down from 23. Continue IV antibiotics until afebrile for 24 hours and with a near normal white count. Advance to low fiber diet for dinner, advised to take it slow. Add nutritional shakes. Subjective Patient reports feeling a bit better in terms of her abdominal pain this AM. However reports some mild SOB and R shoulder pain. Also had some nausea with full liquids yesterday for dinner. She is passing flatus, no BM yet. Denies chest pain. Physical Exam Physical Exam: awake/alert, no distress Respiratory: normal respiratory effort on 2 L of O2 with >90% saturation Gastrointestinal (Abdomen): Inspection/Auscultation: + abdominal surgical incision (c/d/i) and + abdominal surgical drain present (serosang); abdomen not distended Percussion/Palpation: + abdomen tender (mild expected efrain incisional discomfort) and abdomen soft Results & Data Vital Signs (Past 12 Hours) Vital Signs Temp Pulse Resp BP Pulse Ox O2 Del Method O2 Flow Rate 07/26/22 07:32 37.3 C 100 H 18 100/66 94 Nasal Cannula 2 07/26/22 06:34 37.9 C H 07/25/22 22:01 37.6 C H 111 H 16 102/69 96 Room Air PG Care Time/CCT Total # of Minutes Spent Total Time Spent with Patient: Total time spent is greater than 50% in coordination of care (as documented) at patient's floor/unit and/or counseling patient: Coding Level of Care Code 74692 Post Operative Follow-Up Diagnoses Acute appendicitis with localized peritonitis K35.30
[2022-07-26 08:42] LABS: Basophils # (auto) 0.06 K/uL (0-0.2); Basophils % (auto) 0.4 %; Eosinophils # (auto) 0.03 K/uL (0-0.50); Eosinophils % (auto) 0.2 %; Hemoglobin 11.5 g/dl (12.0-16.0); Immature Granulocytes # (auto) 0.08 K/uL (0.01-0.20); Immature Granulocytes % (auto) 0.5 %; Lymphocytes # (auto) 2.37 K/uL (1.2-3.4); Lymphocytes % (auto) 14.3 %; Mean Corpuscular Hemoglobin 28.8 pg (25.0-34.0); Mean Corpuscular Hgb Conc 32.9 g/dL (32.0-36.0); Mean Corpuscular Volume 87.5 fL (80.0-100.0); Mean Platelet Volume 10.6 fL (9.4-12.4); Monocytes % (auto) 5.4 %; Neutrophils # (auto) 13.17 K/uL (1.40-6.50); Neutrophils % (auto) 79.2 %; Platelet Count 402 K/uL (130-400); RDW Coefficient of Variation 12.9 % (11.5-14.5); RDW Standard Deviation 41.6 fL (36.4-46.3); White Blood Count 16.61 K/ul (4.8-10.8)
[2022-07-26] MEDS ORDERED: PIPERACILLIN/TAZOBACTAM 3.375 GM (over 30 mins) IV ONE (09:00)
[2022-07-26 09:19] LABS: Alanine Aminotransferase 47 U/L (7-52); Albumin Globulin Ratio 1.2 (0.9-2); Albumin Level 3.3 gm/dl (3.4-5.0); Alkaline Phosphatase 80 U/L (34-104); Anion Gap 7 (3-11); Aspartate Aminotransferase 18 U/L (13-39); BUN Creatinine Ratio 13.1 (10-20); Bilirubin,Total 0.7 mg/dl (0.2-1.0); Blood Urea Nitrogen 8 mg/dl (6-23); Calcium 8.2 mg/dl (8.6-10.3); Carbon Dioxide 24 mmol/L (21-32); Chloride 106 mmol/L (98-107); Creatinine Clr Calc Pharmacy 155.7 ml/min; Est GFR (African American) > 150.0 ml/min; Est GFR (Non-African American) 129.6 ml/min; Globulin 2.8 gm/dl (2.5-4.0); Glucose 85 mg/dl (70-99(Fasting)); Potassium 3.3 mmol/L (3.5-5.1); Sodium 137 mmol/L (136-145); Total Protein 6.1 gm/dl (6.0-8.3)
[2022-07-26] MEDS ORDERED: POTASSIUM CHLORIDE CRTAB 20 MEQ TABCR PO STA (09:52)
[2022-07-26] MEDS: LACTATED RINGER'S 1,000 ML IV SCH (12:35)
[2022-07-26] MEDS: PIPERACILLIN/TAZOBACTAM 3.375 GM in DEXTROSE 5% 100 ML IV SCH ×2 (16:20→22:27)
[2022-07-27] MEDS: KETOROLAC TROMETHAMINE 15 MG/ML VIAL IV SCH ×5 (00:54→23:31)
[2022-07-27] MEDS: LACTATED RINGER'S 1,000 ML IV SCH ×2 (03:42→17:41)
[2022-07-27] MEDS: PIPERACILLIN/TAZOBACTAM 3.375 GM in DEXTROSE 5% 100 ML IV SCH ×3 (05:56→23:31)
[2022-07-27] MEDS: ACETAMINOPHEN 1,000 MG/100 ML VIAL IV SCH ×2 (05:56→13:39)
[2022-07-27 08:05] LABS: Basophils # (auto) 0.08 K/uL (0-0.2); Basophils % (auto) 0.7 %; Eosinophils # (auto) 0.26 K/uL (0-0.50); Eosinophils % (auto) 2.2 %; Hematocrit (blood only) 34.7 % (37.0-47.0); Hemoglobin 11.4 g/dl (12.0-16.0); Immature Granulocytes # (auto) 0.06 K/uL (0.01-0.20); Immature Granulocytes % (auto) 0.5 %; Lymphocytes # (auto) 2.34 K/uL (1.2-3.4); Lymphocytes % (auto) 19.4 %; Mean Corpuscular Hemoglobin 29.1 pg (25.0-34.0); Mean Corpuscular Hgb Conc 32.9 g/dL (32.0-36.0); Mean Corpuscular Volume 88.5 fL (80.0-100.0); Mean Platelet Volume 10.3 fL (9.4-12.4); Monocytes # (auto) 0.65 K/uL (0.11-0.59); Monocytes % (auto) 5.4 %; Neutrophils # (auto) 8.67 K/uL (1.40-6.50); Neutrophils % (auto) 71.8 %; Platelet Count 421 K/uL (130-400); RDW Coefficient of Variation 13.1 % (11.5-14.5); RDW Standard Deviation 42.3 fL (36.4-46.3); Red Blood Count 3.92 M/uL (4.20-5.40); White Blood Count 12.06 K/ul (4.8-10.8)
[2022-07-27 08:30] LABS: Alanine Aminotransferase 55 U/L (7-52); Albumin Globulin Ratio 1.1 (0.9-2); Albumin Level 3.2 gm/dl (3.4-5.0); Alkaline Phosphatase 58 U/L (34-104); Anion Gap 6 (3-11); Aspartate Aminotransferase 29 U/L (13-39); BUN Creatinine Ratio 14.3 (10-20); Bilirubin,Total 0.5 mg/dl (0.2-1.0); Blood Urea Nitrogen 8 mg/dl (6-23); Calcium 8.4 mg/dl (8.6-10.3); Carbon Dioxide 25 mmol/L (21-32); Chloride 106 mmol/L (98-107); Creatinine Clr Calc Pharmacy 169.6 ml/min; Est GFR (African American) > 150.0 ml/min; Est GFR (Non-African American) 133.3 ml/min; Globulin 2.9 gm/dl (2.5-4.0); Glucose 88 mg/dl (70-99(Fasting)); Potassium 3.7 mmol/L (3.5-5.1); Sodium 137 mmol/L (136-145); Total Protein 6.1 gm/dl (6.0-8.3)
[2022-07-27] MEDS: oxyCODONE HCL IR 5 MG TAB (IMMEDIATE RELEASE) PO PRN ×3 (08:34→22:19)
--- NOTE | 2022-07-27 12:37 | Surgery Progress Note ---
Date of Service July 27, 2022 Assessment & Plan (1) Acute appendicitis with localized peritonitis: Plan: POD#3 laparoscopic appendectomy for perforated appendicitis. wbc downtrending, fever yesterday. cont iv abx, in house til wbc near normal and afebrile x 24 hours, then home with oral abx for total 10 day course likely remove ti prior to d/c potential d/c tomorrow ambulate, IS, oobtc Admission and Anticipated Discharge Date Admission Date: July 24, 2022 Subjective POD#3 lap appy for perforated appendicitis. Fever yesterday, feeling better, less RLQ pain. Tolerating diet but small amounts, passing flatus. Physical Exam Constitutional: WD/WN, vitals as above Gastrointestinal (Abdomen): Inspection/Auscultation: + abdominal surgical incision (healing well) Percussion/Palpation: + abdomen tender (appropriate, mild) and abdomen soft; no guarding and abdomen not rigid ti serosanguineous Results & Data Vital Signs (Past 12 Hours) Vital Signs Temp Pulse Pulse Resp BP Pulse Ox O2 Del Method 07/27/22 11:12 36.7 C 81 18 98/65 L 92 Room Air 07/27/22 10:07 89 94 Room Air 07/27/22 08:00 Room Air 07/27/22 07:35 36.5 C 75 16 98/64 L 98 Nasal Cannula 07/27/22 00:54 37 C O2 Flow Rate 07/27/22 11:12 07/27/22 10:07 07/27/22 08:00 07/27/22 07:35 2 07/27/22 00:54 Laboratory Results Laboratory Results - last 24 hr 07/27/22 07/27/22 07:09 07:09 WBC 12.06 H RBC 3.92 L Hgb 11.4 L Hct 34.7 L MCV 88.5 MCH 29.1 MCHC 32.9 RDW Std Deviation 42.3 RDW Coeff of Marlene 13.1 Plt Count 421 H MPV 10.3 Immature Gran % (Auto) 0.5 Neut % (Auto) 71.8 Lymph % (Auto) 19.4 [place] % (Auto) 5.4 Eos % (Auto) 2.2 Baso % (Auto) 0.7 Neut # (Auto) 8.67 H Lymph # (Auto) 2.34 [place] # (Auto) 0.65 H Eos # (Auto) 0.26 Baso # (Auto) 0.08 Immature Gran # (Auto) 0.06 Sodium 137 Potassium 3.7 Chloride 106 Carbon Dioxide 25 Anion Gap 6 BUN 8 Creatinine 0.56 L Est Cr Clr Drug Dosing 169.6 Est GFR ( Amer) > 150.0 Est GFR (Non-Af Amer) 133.3 BUN/Creatinine Ratio 14.3 Glucose 88 Calcium 8.4 L Total Bilirubin 0.5 AST 29 ALT 55 H Alkaline Phosphatase 58 Total Protein 6.1 Albumin 3.2 L Globulin 2.9 Albumin/Globulin Ratio 1.1 PG Care Time/CCT Total # of Minutes Spent Total Time Spent with Patient: Total time spent is greater than 50% in coordination of care (as documented) at patient's floor/unit and/or counseling patient: Coding Level of Care Code None Diagnoses Acute appendicitis with localized peritonitis K35.30
[2022-07-28] MEDS: LACTATED RINGER'S 1,000 ML IV SCH (03:04)
[2022-07-28] MEDS: PIPERACILLIN/TAZOBACTAM 3.375 GM in DEXTROSE 5% 100 ML IV SCH (06:27)
[2022-07-28] MEDS: KETOROLAC TROMETHAMINE 15 MG/ML VIAL IV SCH (06:30)
[2022-07-28] MEDS ORDERED: ACETAMINOPHEN 325 MG TAB PO PRN (07:19)
[2022-07-28 08:44] LABS: Basophils # (auto) 0.09 K/uL (0-0.2); Basophils % (auto) 0.8 %; Eosinophils # (auto) 0.29 K/uL (0-0.50); Eosinophils % (auto) 2.6 %; Hematocrit (blood only) 35.4 % (37.0-47.0); Hemoglobin 11.9 g/dl (12.0-16.0); Immature Granulocytes # (auto) 0.17 K/uL (0.01-0.20); Immature Granulocytes % (auto) 1.5 %; Lymphocytes # (auto) 2.34 K/uL (1.2-3.4); Lymphocytes % (auto) 20.7 %; Mean Corpuscular Hemoglobin 28.8 pg (25.0-34.0); Mean Corpuscular Hgb Conc 33.6 g/dL (32.0-36.0); Mean Corpuscular Volume 85.7 fL (80.0-100.0); Mean Platelet Volume 10.1 fL (9.4-12.4); Monocytes # (auto) 0.75 K/uL (0.11-0.59); Monocytes % (auto) 6.6 %; Neutrophils # (auto) 7.69 K/uL (1.40-6.50); Neutrophils % (auto) 67.8 %; Platelet Count 516 K/uL (130-400); RDW Coefficient of Variation 12.6 % (11.5-14.5); RDW Standard Deviation 39.4 fL (36.4-46.3); Red Blood Count 4.13 M/uL (4.20-5.40); White Blood Count 11.33 K/ul (4.8-10.8)
[2022-07-28 09:34] LABS: BUN Creatinine Ratio 13.8 (10-20); Calcium 8.7 mg/dl (8.6-10.3); Creatinine Clr Calc Pharmacy 146.1 ml/min; Est GFR (African American) 147.1 ml/min; Est GFR (Non-African American) 126.9 ml/min; Potassium 3.6 mmol/L (3.5-5.1)
--- NOTE | 2022-07-28 10:01 | Surgery Progress Note ---
Date of Service July 28, 2022 Assessment & Plan (1) Acute appendicitis with localized peritonitis: Plan: POD#4 laparoscopic appendectomy for perforated appendicitis. wbc downtrending, afebrile drain removed d/c to home oral abx f/u in 2 weeks wound care instructions, activity restrictions and return precautions given Admission and Anticipated Discharge Date Admission Date: July 24, 2022 Subjective POD#4 lap appy for perforated appendicitis. afebrile, doing well, tolerating diet. Physical Exam Constitutional: WD/WN, vitals as above Gastrointestinal (Abdomen): Inspection/Auscultation: + abdominal surgical incision (healing well) Percussion/Palpation: + abdomen tender (appropriate, mild) ti serosanguineous, removed Results & Data Vital Signs (Past 12 Hours) Vital Signs Temp Pulse Resp BP Pulse Ox O2 Del Method 07/28/22 06:44 37.2 C 07/27/22 22:40 37 C 07/27/22 22:21 37.8 C H 79 16 123/86 94 Room Air Laboratory Results Laboratory Results - last 24 hr 07/28/22 07/28/22 08:10 08:10 WBC 11.33 H RBC 4.13 L Hgb 11.9 L Hct 35.4 L MCV 85.7 MCH 28.8 MCHC 33.6 RDW Std Deviation 39.4 RDW Coeff of Marlene 12.6 Plt Count 516 H MPV 10.1 Immature Gran % (Auto) 1.5 Neut % (Auto) 67.8 Lymph % (Auto) 20.7 Amelia % (Auto) 6.6 Eos % (Auto) 2.6 Baso % (Auto) 0.8 Neut # (Auto) 7.69 H Lymph # (Auto) 2.34 Amelia # (Auto) 0.75 H Eos # (Auto) 0.29 Baso # (Auto) 0.09 Immature Gran # (Auto) 0.17 Sodium 137 Potassium 3.6 Chloride 105 Carbon Dioxide 24 Anion Gap 8 BUN 9 Creatinine 0.65 Est Cr Clr Drug Dosing 146.1 Est GFR ( Amer) 147.1 Est GFR (Non-Af Amer) 126.9 BUN/Creatinine Ratio 13.8 Glucose 85 Calcium 8.7 PG Care Time/CCT Total # of Minutes Spent Total Time Spent with Patient: Total time spent is greater than 50% in coordination of care (as documented) at patient's floor/unit and/or counseling patient: Coding Level of Care Code None Diagnoses Acute appendicitis with localized peritonitis K35.30
--- NOTE | 2022-07-30 08:13 | Coding Query ---
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 Please assist us with the question(s) below: Please place an X within the parenthesis (x). The following diagnosis listed in this patient's medical record require physician assistance to determine if they were present on admission (POA) or not. Please advise for each diagnosis whether it was present on admission, not present on admission, or if it was clinically undetermined. 1. SEPSIS - (documented on Addendum on the 07/27 Progress Note) ( x) Present On Admission ( ) Not Present On Admission ( ) Clinically Undetermined Thank you Sandra Herrera *Definition of the present on admission (POA)-Present on admission is defined as present at the time the order for inpatient admission occurs. Conditions that develop during an outpatient encounter prior to a written order for inpatient admission (including emergency department, observation, or outpatient surgery) are considered present on admission. MTDD
--- NOTE | 2022-08-02 14:46 | Discharge Summary ---
Date of Service July 28, 2022 Admission HPI Per Admitting Provider 22-year-old female presents with abdominal pain. Started with periumbilical pain about 48 hours ago. Yesterday evening the pain migrated to the right lower quadrant and became worse. She admits to some nausea, and had some diarrhea early in the process. Otherwise no other fevers or abdominal symptoms. Otherwise healthy, no prior abdominal surgeries, no routine medications. 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 Principal Diagnosis acute perforated appendicitis Discharge Exam awake/alert, no distress Respiratory normal respiratory effort Gastrointestinal (Abdomen) Inspection/Auscultation: + abdominal surgical incision (c/d/i with skin glue, no signs of infection) and + abdominal surgical drain present (serousang. ); abdomen not distended Percussion/Palpation: + abdomen tender (mild expected efrain incisional discomfort to palpation ) and abdomen soft Discharge Data Allergies Allergy/AdvReac Type Severity Reaction Status Date / Time No Known Allergies Allergy Unverified 07/24/22 09:39 Consultations 07/24/22 11:16 ED Decision to Admit Stat Procedures Performed Operation Date: 07/24/22 13:00 Actual Procedures p Laparoscopic Appendectomy(Not Applicable) - Aramis Corey DO, FACS Ordered Studies 07/24/22 08:53 CT abd pelvis IV con only Stat Hospital Course (1) Acute appendicitis with localized peritonitis: This is a 22yF who presented to the [facility] ED on 07/24/22 with complaints of abdominal pain. Workup in the ER showed a WBC of [address] a/p concerning for acute appendicitis with suspected perforation. The patient was taken to the OR with Dr. Corey and underwent a laparoscopic appendectomy. She was left with a MARY drain in place. Post op the patient remained on IV abx throughout her hospitalization. Initially was on IV unasyn and transitioned to IV zosyn. Her diet was slowly advanced as she tolerated. Pain initially controlled with IV's prn and transitioned to oral medication once she was taking in an oral diet. Her WBC and temperature downtrended to normal towards her discharge. On POD#4 patient's WBC 11. Vitals stable, afebrile. She was tolerating a low fiber diet. Pain controlled on oral pain meds. Incisions c/d/i. Her MARY drain which was serosanguineous was removed. She was instructed to follow up with Dr. Corey within 2 weeks time. She was given a course of PO abx to take at home to complete. (2) Sepsis: Please note patient met criteria for SIRS (wbc 23, hr >90, tmax 38) with known source of infection meeting criteria for sepsis. This has resolved prior to her discharge to home. Total Time Total Time Spent Total Time Spent (In Minutes): 20 Discharge Plan Discharge Items Patient Disposition: Home - Self-Care Reason For Visit: POST OP APPY, PERFORATED Discharge Diagnosis: perforated appendix Activity: Per Instructions section Lifting: No more than 10 pounds Bathing Comment: may shower; no soaking in tubs/pools Exercise/Sports: Wait until after follow-up appointment Driving/Machine Use: no driving while taking narcotics for pain Non-emergency contact: Surgeon Call non-emergency contact if: you have any medication questions, your symptoms worsen, your pain is not controlled, your pain is concerning for you, you have a fever, your temperature is above 101.5, your wound has increased redness, your wound has increased drainage and your wound pain has increased Follow-up/Referrals: Gray Camacho [Other] Aramis Corey, , AGUSTIN [Physician] - 08/10/22 9:00 am (Call to schedule follow up in clinic within 2 weeks) Diet: Low Fiber Addtl Attending Provider Instructions: Please complete the full course of antibiotic prescribed to you You may cover the incision where your drain was removed with dry gauze and medipore tape until it has healed and no longer drainage. Change daily and as needed You may purchase Tylenol and/or Ibuprofen over the counter if needed for additional pain control over the next few days. Do not take the narcotic Percocet and Tylenol concurrently as they both contain Acetaminophen and you should not exceed >3 grams of Acetaminophen within a 24 hour time period. If you need to take a stool softener to prevent constipation while on narcotics for pain you may purchase them over the counter. Such as Colace 100mg orally twice a day. Or Miralax daily. Pending Studies at Discharge: Yes Studies:: surgical pathology Stand-Alone Forms: My [employer], Smoking Cessation Medications and DC Order Prescriptions: New oxycodone-acetaminophen [Percocet] 5-325 mg tablet 1 - 2 tab PO .q4-6h PRN (Reason: pain, for initial therapy, max 6 tabs per day) Qty: 10 0RF amoxicillin-pot clavulanate 875-125 mg tablet 1 tab PO BID Qty: 14 0RF Discharge Orders: Discharge Order (Routine); Ordered 07/28/22 Ordered By: Sri Manjarrez Admission Data Admit Date/Time: 07/24/22 13:59 Attending Provider: Aramis Corey Admit Provider: Aramis Corey Primary Care Provider: Gray Camacho Other Interventions: Discharge Summary Assessment (RN) Last Done: 07/28/22 11:08 Coding Level of Care Code 09133 IN/OBS DISCH 30 MIN/LESS Diagnoses Acute appendicitis with localized peritonitis K35.30 Sepsis A41.9
== END 2022-07-28 15:31 | disposition home or self-care (01) | DRG 853 ==
LOC: ED 08:27 → 3W 12:20 → OR 12:20 → 3W 13:59